=== PATIENT | male | born 1975 | race American Indian/Alaskan Native ===

== ENCOUNTER 2017-12-18 11:57 | Emergency (ER) | payer SELFPAY ==
[2017-12-18 12:26] VITALS: RESP 18
[2017-12-18] MEDS ORDERED: Sodium Chloride 0.9% 1,000 ML IV STA (12:29)
[2017-12-18] MEDS ORDERED: Morphine 4 MG/ML VIAL IV STA ×2 (12:29→15:18)
--- NOTE | 2017-12-18 12:34 | ED PDOC ---
HPI: Abdomen Time Seen by Provider: 12/18/17 12:17 Chief Complaint (Nursing): Abdominal Pain Chief Complaint (Provider): Abdominal pain History Per: Patient History/Exam Limitations: no limitations Onset/Duration Of Symptoms: Days (2) Outside of [place] travel?: No Additional Complaint(s): pt reports nausea, vomiting, abdominal pain and diarrhea since last PM. Pt with h/o diverticulitis, last episode 2 years ago. Denies fever, dysuria, hematuria. States CD4 count 800 and viral load undetectable. Past Medical History Reviewed: Nursing Documentation, Vital Signs Vital Signs: Last Vital Signs Temp 98.2 F 12/18/17 15:28 Pulse 87 12/18/17 15:28 Resp 18 12/18/17 15:28 BP 138/82 12/18/17 15:28 Pulse Ox 97 12/18/17 15:28 - Medical History PMH: Asthma, Diverticulitis, HIV - Surgical History Surgical History: No Surg Hx - Family History Family History: States: Unknown Family Hx - Social History Current smoker - smoking cessation education provided: Yes Alcohol: None - Home Medications Home Medications: Ambulatory Orders Medication Instructions Recorded Moxifloxacin [Avelox] 400 mg PO DAILY #9 tab 12/18/17 - Allergies Allergies/Adverse Reactions: Allergies Allergy/AdvReac Type Severity Reaction Status Date / Time Latex, Natural Rubber Allergy RASH Verified 12/18/17 12:27 metronidazole [From Flagyl] Allergy RASH Verified 12/18/17 12:27 NSAIDS (Non-Steroidal Allergy RASH Verified 12/18/17 12:27 Anti-Inflamma Sulfa (Sulfonamide Allergy ANAPHYLAXIS Verified 12/18/17 12:27 Antibiotics) Review of Systems Constitutional: Negative for: Fever, Chills Cardiovascular: Negative for: Chest Pain, Palpitations Respiratory: Negative for: Cough, Shortness of Breath Gastrointestinal: Positive for: Nausea, Vomiting, Abdominal Pain, Diarrhea. Negative for: Constipation, Melena, Hematochezia, Hematemesis Genitourinary Male: Negative for: Dysuria, Hematuria Musculoskeletal: Negative for: Back Pain Skin: Negative for: Rash, Lesions Neurological: Negative for: Weakness, Numbness, Headache Physical Exam - Reviewed Nursing Documentation Reviewed: Yes Vital Signs Reviewed: Yes - Physical Exam Appears: Positive for: Well, No Acute Distress Skin: Positive for: Normal Color, Warm, Dry Eye Exam: Positive for: Normal appearance, EOMI, PERRL Cardiovascular/Chest: Positive for: Regular Rate, Rhythm Respiratory: Positive for: Normal Breath Sounds Gastrointestinal/Abdominal: Positive for: Bowel Sounds, Soft, Tenderness (LLQ). Negative for: Distended, Guarding, Rebound Back: Positive for: Normal Inspection. Negative for: L CVA Tenderness, R CVA Tenderness Neurologic/Psych: Positive for: Alert, Oriented - Laboratory Results Result Diagrams: 12/18/17 12:40 12/18/17 12:40 - ECG O2 Sat by Pulse Oximetry: 99 Medical Decision Making Medical Decision Makin yo male with vomiting, diarrhea and LLQ pain. - labs - EKG - CT abd/pelvis - IVF - Morphine Accession No. : [id number] Patient Name / ID : [id number] PAZ / [id number] Exam Date : 12/18/2017 13:59:18 ( Approved ) Study Comment : Sex / Age : M / 42Y Creator : Vinicio Nathan MD Dictator : Vinicio Nathan MD Stacker Attendant : Fundraising Specialist : Vinicio Nathan MD Approver2 : Report Date : 12/18/2017 14:36:24 My Comment : PROCEDURE: CT Abdomen and Pelvis with contrast HISTORY: LLQ pain, vomiting, diarrhea COMPARISON: None. TECHNIQUE: Contrast dose: Omnipaque 300, 95 cc Radiation dose: Total exam DLP = 1068.73 mGy-cm. This CT exam was performed using one or more of the following dose reduction techniques: Automated exposure control, adjustment of the mA and/or kV according to patient size, and/or use of iterative reconstruction technique. FINDINGS: LOWER THORAX: Unremarkable. LIVER: The liver is diffusely diminished in attenuation suggestive of diffuse fatty infiltration without focal mass identified. No definite intrahepatic biliary duct dilatation. GALLBLADDER AND BILE DUCTS: Gallbladder nearly completely contracted. No radiodense cholelithiasis identified. PANCREAS: Unremarkable. No gross lesion or ductal dilatation. SPLEEN: Unremarkable. ADRENALS: Unremarkable. No mass. KIDNEYS AND URETERS: Unremarkable. No hydronephrosis. No solid mass. VASCULATURE: Unremarkable. No aortic aneurysm. BOWEL: There scattered diverticular appreciated throughout the colon, some of which contain retained oral contrast or other radiodense material from prior ingestion. The small large bowel are diminished in caliber the potentially the distal large bowel segment. No pericolic reaction is appreciated including at the sigmoid segment. The lack of oral contrast limits evaluation overall. A segment of distal sigmoid colon is questionably thickened and limited segmental colitis is not excluded but is not proven either. Further clinical correlation is recommended. APPENDIX: Normal appendix. PERITONEUM: Unremarkable. No free fluid. No free air. LYMPH NODES: Unremarkable. No enlarged lymph nodes. BLADDER: Unremarkable. REPRODUCTIVE: Unremarkable. BONES: No acute fracture. OTHER FINDINGS: None. IMPRESSION: Colonic diverticulosis scattered relatively diffusely addendum [id number] fashion. No overt segmental colitis pattern is appreciated though there is questionable thickening of the distal sigmoid colon raising question of potential early or limited segmental colitis. This is neither proven or completely excluded. Further clinical correlation is advised. Hepatic steatosis. Disposition - Clinical Impression Clinical Impression: Segmental colitis - Disposition Disposition: Routine/Home Disposition Time: 15:09 Condition: STABLE Additional Instructions: FOLLOW-UP WITH YOUR PMD WITHIN 2 DAYS FOR REEVALUATION. Prescriptions: Moxifloxacin [Avelox] 400 mg PO DAILY #9 tab Instructions: Diarrhea and Traveler's Diarrhea, Adult (DC) Forms: [employer] (Swedish)
[2017-12-18 12:50] LABS: BASO % 0.7 % (0.0-2.0); HEMOGLOBIN 12.9 g/dL (12.0-18.0); LYMPH # 0.9 K/uL (1.0-4.3); LYMPH % 31.7 % (20.0-40.0); MEAN CELL VOLUME 89.4 fl (80.0-94.0); MEAN CORPUSCULAR HEMOGLOBIN 30.6 pg (27.0-31.0); MEAN CORPUSCULAR HGB CONC 34.2 g/dL (33.0-37.0); MEAN PLATELET VOLUME 6.8 fl (7.2-11.7); MONO # 0.3 K/uL (0.0-0.8); MONO % 11.6 % (0.0-10.0); NEUT # 1.5 K/uL (1.8-7.0); NRBC % 0.2 % (0.0-0.0); RBC 4.24 Mil/uL (4.40-5.90); RED CELL DISTRIBUTION WIDTH 13.3 % (11.5-14.5); WHITE BLOOD COUNT 2.7 K/uL (4.8-10.8)
[2017-12-18 13:01] LABS: ALB/GLOB RATIO 1.1 (1.0-2.1); ALBUMIN 4.3 g/dL (3.5-5.0); ALT/SGPT 32 U/L (21-72); AST/SGOT 21 U/L (17-59); BLOOD UREA NITROGEN 10 mg/dl (9-20); CALCIUM 9.4 mg/dL (8.4-10.2); GFR AFRICAN-AMERICAN > 60; GFR NON-AFRICAN AMERICAN > 60
[2017-12-18 13:02] LABS: PROTHROMBIN TIME 10.9 Seconds (9.8-13.1)
[2017-12-18 13:12] LABS: OPIATES, UR NEGATIVE (NEGATIVE)
[2017-12-18 13:16] LABS: BARBITURATES, UR NEGATIVE (NEGATIVE); BENZODIAZEPINES, UR NEGATIVE (NEGATIVE); PHENCYCLIDINE, UR NEGATIVE (NEGATIVE)
[2017-12-18 13:20] LABS: SQUAMOUS EPITHIAL < 1 /hpf (0-5); URINE BILIRUBIN NEGATIVE (NEGATIVE); URINE BLOOD SMALL (NEGATIVE); URINE CLARITY CLEAR (Clear); URINE COLOR YELLOW (YELLOW); URINE GLUCOSE (UA) NEG (Normal); URINE LEUKOCYTE ESTERASE NEG Leu/uL (Negative); URINE NITRATE NEGATIVE (NEGATIVE); URINE PROTEIN NEGATIVE (NEGATIVE); URINE UROBILINOGEN 0.2-1.0 mg/dL (0.2-1.0)
[2017-12-18] MEDS ORDERED: Morphine 4 MG/ML VIAL ONE ×2 (13:28→15:20)
[2017-12-18] MEDS ORDERED: Sodium Chloride 0.9% 100 ML ONE (13:29)
[2017-12-18] MEDS ORDERED: Iohexol 300 100 ML IJ ONE (13:29)
--- NOTE | 2017-12-18 14:37 | CT ---
PROCEDURE: CT Abdomen and Pelvis with contrast HISTORY: LLQ pain, vomiting, diarrhea COMPARISON: None. TECHNIQUE: Contrast dose: Omnipaque 300, 95 cc Radiation dose: Total exam DLP = 1068.73 mGy-cm. This CT exam was performed using one or more of the following dose reduction techniques: Automated exposure control, adjustment of the mA and/or kV according to patient size, and/or use of iterative reconstruction technique. FINDINGS: LOWER THORAX: Unremarkable. LIVER: The liver is diffusely diminished in attenuation suggestive of diffuse fatty infiltration without focal mass identified. No definite intrahepatic biliary duct dilatation. GALLBLADDER AND BILE DUCTS: Gallbladder nearly completely contracted. No radiodense cholelithiasis identified. PANCREAS: Unremarkable. No gross lesion or ductal dilatation. SPLEEN: Unremarkable. ADRENALS: Unremarkable. No mass. KIDNEYS AND URETERS: Unremarkable. No hydronephrosis. No solid mass. VASCULATURE: Unremarkable. No aortic aneurysm. BOWEL: There scattered diverticular appreciated throughout the colon, some of which contain retained oral contrast or other radiodense material from prior ingestion. The small large bowel are diminished in caliber the potentially the distal large bowel segment. No pericolic reaction is appreciated including at the sigmoid segment. The lack of oral contrast limits evaluation overall. A segment of distal sigmoid colon is questionably thickened and limited segmental colitis is not excluded but is not proven either. Further clinical correlation is recommended. APPENDIX: Normal appendix. PERITONEUM: Unremarkable. No free fluid. No free air. LYMPH NODES: Unremarkable. No enlarged lymph nodes. BLADDER: Unremarkable. REPRODUCTIVE: Unremarkable. BONES: No acute fracture. OTHER FINDINGS: None. IMPRESSION: Colonic diverticulosis scattered relatively diffusely addendum [id number] fashion. No overt segmental colitis pattern is appreciated though there is questionable thickening of the distal sigmoid colon raising question of potential early or limited segmental colitis. This is neither proven or completely excluded. Further clinical correlation is advised. Hepatic steatosis.
[2017-12-18 15:29] VITALS: BP 138/82; PULSE 87; TEMP 98.2
--- NOTE | 2017-12-19 01:48 | CARD ---
APPROVED REPORT EKG Measurement Heart [id number] <Conclusion> Normal sinus rhythm Incomplete right bundle branch block Voltage criteria for left ventricular hypertrophy Abnormal ECG
[2017-12-19 09:30] VITALS: O2SAT 99
== END 2017-12-18 15:38 | disposition home or self-care (01) ==
LOC: H.ER 11:57
DX: K52.9 Noninfective gastroenteritis and colitis, unspecified (principal); K57.30 Diverticulosis of large intestine without perforation or abscess without bleeding; B20 Human immunodeficiency virus [HIV] disease; F17.200 Nicotine dependence, unspecified, uncomplicated; J45.909 Unspecified asthma, uncomplicated; K76.0 Fatty (change of) liver, not elsewhere classified
CPT/HCPCS: 74177; 80053; 81003; 85025; 85610; 85730; 87040; 93005; 96360; 99283; G0480; J2270; J2405; J7040; Q9967